=== PATIENT | female | born 1970 | race Caucasian/White ===

== ENCOUNTER → 2018-02-15 | Day surgery (SDC) | payer MEDICAID ==
[~2018-02-15] VITALS: Ht 170.2 cm; Wt 116.4 kg
[~2018-02-15] MED LIST: AMLO2.5T PO; CHLORHEXIDINE GLUCONATE 2 % 1 PACK (2 CLOTHS) TOPICAL PRN; DO NOT ADM ANY ANTICOAGULANT DRUGS PRN; INSULIN HUMAN REGULAR 1,000 UNITS/10 ML VIAL SQ PRN; LACTATED RINGER'S 1000 ML IV PRN; LEVA500T33 PO; LEVOFLOXACIN 500 MG PREMIX INJ 100 ML IV SCH; LIDOCAINE HCL 1% PF 5 ML SYRINGE OTHER ONE; LORA-474 PO; MACR100C2 PO; METOPROLOL TARTRATE 25 MG TAB PO PRN; MIDAZOLAM HCL 2 MG/2 ML VIAL ONE; ONDANSETRON HCL 4 MG/2 ML VIAL IV ONE; ONDANSETRON HCL 4 MG/2 ML VIAL IV PUSH PRN; PERC5TAB12 PO; POVIDONE IODINE 5% (ANTISEPSIS KIT) 4 APPLICATIONS EACH NARE PRN; PROPOFOL 200 MG/20 ML AMP IV ONE; SODIUM CHLORID 0.9% 500 ML IV PRN; ZANT150T2 PO; oxyCODONE/ACETAMINOPHEN 5 MG/325 MG TAB PO PRN
[2018-02-15 10:23] LABS: AUTOMATED NEUTROPHIL # 4.4 TH/MM3 (1.8-7.7); BASOPHIL # 0.1 TH/MM3 (0-0.2); BASOPHIL % 0.8 % (0.0-2.0); EOSINOPHIL # 0.1 TH/MM3 (0-0.4); EOSINOPHIL % 1.4 % (0.0-4.0); HEMATOCRIT 40.2 % (35.0-46.0); HEMOGLOBIN 13.7 GM/DL (11.6-15.3); LYMPH % 20.3 % (9.0-44.0); LYMPHOCYTE # 1.3 TH/MM3 (1.0-4.8); MEAN CELL VOLUME 91.5 FL (80.0-100.0); MEAN CORPUSCULAR HEMOGLOBIN 31.3 PG (27.0-34.0); MEAN CORPUSCULAR HGB CONC 34.2 % (32.0-36.0); MEAN PLATELET VOLUME 7.7 FL (7.0-11.0); MONO % 7.8 % (0.0-8.0); MONOCYTE # 0.5 TH/MM3 (0-0.9); NEUT % 69.7 % (16.0-70.0); PLATELET COUNT 281 TH/MM3 (150-450); RED CELL DISTRIBUTION WIDTH 15.1 % (11.6-17.2); WHITE BLOOD COUNT 6.3 TH/MM3 (4.0-11.0)
--- NOTE | 2018-02-15 15:28 | PD.OP ---
Operative Report Date of Surgery: Feb 15, 2018 Preoperative Diagnosis: (1) Ureteral calculus, right Postoperative Diagnosis: (1) Ureteral calculus, right Procedure: Cystoscopy, right retrograde pyelogram, right ureteroscopy with laser lithotripsy and right ureteral catheter placement. Anesthesia: General Surgeon: Cole Oscar Lead Electrical Controls Engineer(s): None Operation and Findings: Indication for procedures: Case of a pleasant 47-year-old female with an obstructing 6 mm right distal ureteral calculus who presents today for right ureteroscopy with laser lithotripsy. Operative procedure in detail: Patient was brought to the operating room suite placed supine on the cystoscopy table. She was then placed under general anesthesia. She was then repositioned in the dorsolithotomy position and prepped and draped in normal sterile fashion. After appropriate timeout was undertaken I proceeded with cystoscopic evaluation utilizing the rigid cystoscope with the 20 [place] sheath and the 30 lens. Both right and left ureteral orifices were in correct anatomic position. There was sluggish drainage of urine noted from both ureteral orifices. There were no bladder mucosal lesions, calculi or diverticula formation. I then advanced a sensor 0.035 wire up the patient's right ureter under fluoroscopic guidance all the way up into the right renal pelvis. With the wire in place the cystoscope was withdrawn and the wire secured to a sterile drape with hemostat. The self dilating ureteroscope was then advanced alongside this wire up to the point of the obstructing right distal ureteral calculus. A 200 m holmium laser fiber was then utilized and laser lithotripsy of the calculus was performed. Several of the larger stone fragments were then retrieved with a 2.4 [place] stone basket and sent off for chemical composition analysis. I then withdrew the ureteroscope and backloaded the cystoscope. A 6 [place] open-ended ureteral cath was then advanced over the previously placed wire up into the right renal pelvis and the wire withdrawn. A right retrograde pyelogram study was performed to outline the collecting system. The cystoscope was withdrawn and a 16 [place] 10 cc Boss catheter was placed. The open-ended catheter was then anchored to the Boss via a connector. Both catheters were then placed to gravity drainage. The patient tolerated the procedures without complications and was transferred to the PACU in satisfactory condition. Cole Oscar MD Feb 15, 2018 15:28
[2018-02-15 17:08] VITALS: BP 148/88; PULSE 79; RESP 16; TEMP 98; O2SAT 98
== END | disposition home or self-care (01) ==
LOC: HSDC 08:49
PROVIDERS: ATTEND Urology
DX: N20.1 Calculus of ureter (principal)
CPT/HCPCS: 00918; 52356; 74420; 82365; 82370; 85025; 88300; C1769; J1956; J2250; J2405; J3010; J7120

== ENCOUNTER 2018-03-28 17:23 | Emergency (ER) | payer MEDICAID ==
[~2018-03-28] VITALS: Ht 170.2 cm; Wt 116.0 kg
[~2018-03-28 17:23] MED LIST changes: -CHLORHEXIDINE GLUCONATE 2 % 1 PACK (2 CLOTHS) TOPICAL PRN; -DO NOT ADM ANY ANTICOAGULANT DRUGS PRN; -INSULIN HUMAN REGULAR 1,000 UNITS/10 ML VIAL SQ PRN; -LACTATED RINGER'S 1000 ML IV PRN; -LEVOFLOXACIN 500 MG PREMIX INJ 100 ML IV SCH; -LIDOCAINE HCL 1% PF 5 ML SYRINGE OTHER ONE; -MACR100C2 PO; -METOPROLOL TARTRATE 25 MG TAB PO PRN; -MIDAZOLAM HCL 2 MG/2 ML VIAL ONE; -ONDANSETRON HCL 4 MG/2 ML VIAL IV ONE; -ONDANSETRON HCL 4 MG/2 ML VIAL IV PUSH PRN; -POVIDONE IODINE 5% (ANTISEPSIS KIT) 4 APPLICATIONS EACH NARE PRN; -PROPOFOL 200 MG/20 ML AMP IV ONE; -SODIUM CHLORID 0.9% 500 ML IV PRN; -oxyCODONE/ACETAMINOPHEN 5 MG/325 MG TAB PO PRN
[2018-03-28 17:30] VITALS: BP 138/97; PULSE 75; RESP 22; TEMP 97.4; O2SAT 100
[2018-03-28] MEDS ORDERED: LORazepam 2 MG/ML VIAL IV PUSH ONE (17:45)
--- NOTE | 2018-03-28 17:47 | PD ---
HPI . Dizziness Chief Complaint: Dizziness Time Seen by Provider: 17:34 Travel History International Travel<30 days: No Contact w/Intl Traveler<30days: No Traveled to known affect area: No History of Present Illness HPI This patient presents with chief complaint of dizziness. She describes vertigo. It is exacerbated by turning her head and by standing. Her symptoms started yesterday morning and have waxed and waned since that time. Symptoms are mild. She presented to an urgent care facility earlier today and was instructed to come to the emergency department for evaluation of possible stroke or heart attack. She has not had any chest pain or shortness of breath. She does not have any focal neurological complaints. She denies any previous history of vertigo. She does have a past medical history of kidney stones and hypertension. She states that she took the Cipro and a Zantac prior to presentation hoping that it would help. She states that she had no idea what she might be treating but felt that they would not hurt. She reports no relief of her symptoms with these medications. PFSH Past Medical History Cancer: No Cardiovascular Problems: No Diabetes: No Endocrine: No Genitourinary: No Hepatitis: No Hiatal Hernia: No Immune Disorder: No Musculoskeletal: Yes (arthritis in left knee) Neurologic: No Psychiatric: No Reproductive: No Respiratory: Yes (previous asthma ) Thyroid Disease: No Past Surgical History Abdominal Surgery: Yes (galllbladder) Eye Surgery: No Genitourinary Surgery: No Gynecologic Surgery: No Oral Surgery: Yes (oral surgery) Social History Tobacco Use: No Substance Use: No Allergies-Medications (Allergen,Severity, Reaction): Coded Allergies: Sulfa (Sulfonamide Antibiotics) (Unverified Allergy, Severe, Cramping, ) amoxicillin (Unverified Allergy, Severe, rash, redness, itching, 03/28/18) Reported Meds & Prescriptions Reported Meds & Active Scripts Active Levaquin (Levofloxacin) 500 Mg Tablet 500 Mg PO DAILY First dose to be taken on February 16, 2018 Percocet (Oxycodone-Acetaminophen) 5-325 mg Tab 1-2 Tab PO Q6H PRN Reported Ativan (Lorazepam) 1 Mg Tab 1 Mg PO DAILY PRN Amlodipine (Amlodipine Besylate) 2.5 Mg Tab 5 Mg PO BID Zantac (Ranitidine HCl) 150 Mg Tab 150 Mg PO BID Review of Systems Except as stated in HPI: all other systems reviewed are Neg Physical Exam Narrative GENERAL: Awake and alert and fully oriented. SKIN: warm/dry. Normal color and turgor. HEAD: Normocephalic. Atraumatic. EYES: Pupils equal and round. No scleral icterus. No injection or drainage. ENT: No nasal bleeding or discharge. Mucous membranes pink and moist. NECK: Trachea midline. Full range of motion without pain.. CARDIOVASCULAR: Regular rate and rhythm. Heart sounds are normal. RESPIRATORY: No accessory muscle use. Clear to auscultation. Breath sounds equal bilaterally. MUSCULOSKELETAL: No obvious deformities. NEUROLOGICAL: Awake and alert. No obvious cranial nerve deficits. Motor grossly within normal limits. Wzedur-iyor-iuntui exam is intact. Normal speech. PSYCHIATRIC: Appropriate mood and affect; insight and judgment normal. Data Data Last Documented VS Vital Signs Date Time Temp Pulse Resp B/P (MAP) Pulse Ox O2 Delivery O2 Flow Rate FiO2 03/28/18 18:10 Room Air 03/28/18 18:00 70 15 121/69 (86) 100 03/28/18 17:30 97.4 Orders Orders Lorazepam Inj (Ativan Inj) (03/28/18 17:45) ^ Saline Lock (03/28/18 17:42) Ct Brain W/O Iv Contrast(Rout) (03/28/18 17:42) Electrocardiogram (03/28/18 ) Complete Blood Count With Diff (03/28/18 17:42) Basic Metabolic Panel (Bmp) (03/28/18 17:42) Troponin I (03/28/18 17:42) Meclizine (Antivert) (03/28/18 18:30) Labs Laboratory Tests Test 03/28/18 18:00 White Blood Count 8.3 TH/MM3 Red Blood Count 4.77 MIL/MM3 Hemoglobin 15.4 GM/DL Hematocrit 44.4 % Mean Corpuscular Volume 93.0 FL Mean Corpuscular Hemoglobin 32.2 PG Mean Corpuscular Hemoglobin Concent 34.6 % Red Cell Distribution Width 15.3 % Platelet Count 284 TH/MM3 Mean Platelet Volume 8.0 FL Neutrophils (%) (Auto) 82.4 % Lymphocytes (%) (Auto) 12.4 % Monocytes (%) (Auto) 4.2 % Eosinophils (%) (Auto) 0.4 % Basophils (%) (Auto) 0.6 % Neutrophils # (Auto) 6.9 TH/MM3 Lymphocytes # (Auto) 1.0 TH/MM3 Monocytes # (Auto) 0.4 TH/MM3 Eosinophils # (Auto) 0.0 TH/MM3 Basophils # (Auto) 0.1 TH/MM3 CBC Comment DIFF FINAL Differential Comment Blood Urea Nitrogen 13 MG/DL Creatinine 0.92 MG/DL Random Glucose 107 MG/DL Calcium Level 9.7 MG/DL Sodium Level 139 MEQ/L Potassium Level 4.2 MEQ/L Chloride Level 107 MEQ/L Carbon Dioxide Level 22.7 MEQ/L Anion Gap 9 MEQ/L Estimat Glomerular Filtration Rate 65 ML/MIN Troponin I LESS THAN 0.02 NG/ML MDM Medical Decision Making Medical Screen Exam Complete: Yes Emergency Medical Condition: Yes Interpretation(s) EKG shows a sinus rhythm with no acute ischemic changes Differential Diagnosis Differential diagnosis of dizziness includes but is not limited to vertigo, dehydration, acute blood loss, sepsis, ACS Narrative Course This patient presents with a chief complaint of dizziness. Her symptoms sound like vertigo. She was instructed to come here for evaluation of possible stroke or heart attack. Her vertigo will be treated with Ativan. She is pretty anxious so the Ativan should treat both the anxiety and the vertigo. In the meantime, I have ordered a CT of her head and an EKG in addition to basic labs. I anticipate discharge. CT: Mild diffuse cerebral atrophy. The ventricles are normal for degree of atrophy. No evidence of midline shift, mass lesion, hemorrhage or acute infarction. No extra-axial fluid collections are seen. CBC & BMP Diagram 03/28/18 18:00 Calcium Level 9.7 trop < 0.02 This patient is stable for discharge to home. Diagnosis Primary Impression: Vertigo Patient Instructions: Benign Paroxysmal Positional Vertigo (DC), General Instructions Med/Other Pt SpecificInfo: Prescription(s) given Disposition: DISCHARGE HOME Condition: Stable June Wagner MD Mar 28, 2018 17:47
[2018-03-28 18:00] VITALS: BP 121/69; PULSE 70; RESP 15; O2SAT 100
[2018-03-28 18:14] LABS: AUTOMATED NEUTROPHIL # 6.9 TH/MM3 (1.8-7.7); BASOPHIL # 0.1 TH/MM3 (0-0.2); BASOPHIL % 0.6 % (0.0-2.0); EOSINOPHIL % 0.4 % (0.0-4.0); HEMATOCRIT 44.4 % (35.0-46.0); HEMOGLOBIN 15.4 GM/DL (11.6-15.3); LYMPH % 12.4 % (9.0-44.0); MEAN CORPUSCULAR HEMOGLOBIN 32.2 PG (27.0-34.0); MEAN CORPUSCULAR HGB CONC 34.6 % (32.0-36.0); MONO % 4.2 % (0.0-8.0); MONOCYTE # 0.4 TH/MM3 (0-0.9); NEUT % 82.4 % (16.0-70.0); PLATELET COUNT 284 TH/MM3 (150-450); RED BLOOD COUNT 4.77 MIL/MM3 (4.00-5.30); RED CELL DISTRIBUTION WIDTH 15.3 % (11.6-17.2); WHITE BLOOD COUNT 8.3 TH/MM3 (4.0-11.0)
--- NOTE | 2018-03-28 18:24 | RADRPT ---
EXAM DATE/TIME: 03/28/2018 18:11 [facility] COMPARISON: No previous studies available for comparison. INDICATIONS : Dizziness. RADIATION DOSE: 56.35 CTDIvol (mGy) MEDICAL HISTORY : Hypertension. SURGICAL HISTORY : None. ENCOUNTER: Initial ACUITY: 1 day PAIN SCALE: 0/10 LOCATION: cranial TECHNIQUE: Multiple contiguous axial images were obtained of the head. Using automated exposure control and adj ustment of the mA and/or kV according to patient size, radiation dose was kept as low as reasonably a chievable to obtain optimal diagnostic quality images. DICOM format image data is available electro nically for review and comparison. FINDINGS: CEREBRUM: Mild diffuse cerebral atrophy. The ventricles are normal for degree of atrophy. No evidence of midli ne shift, mass lesion, hemorrhage or acute infarction. No extra-axial fluid collections are seen. POSTERIOR FOSSA: The cerebellum and brainstem are intact. The 4th ventricle is midline. The cerebellopontine angle i s unremarkable. EXTRACRANIAL: The visualized portion of the orbits is intact. SKULL: The calvaria is intact. No evidence of skull fracture. CONCLUSION: 1. Mild diffuse or bladder a few slightly out of proportion to stated age. 2. No acute intracranial abnormality. Kota Bae MD on March 28, 2018 at 18:20 Board Certified Radiologist. This report was verified electronically.
[2018-03-28] MEDS ORDERED: MECLIZINE HCL 25 MG TAB PO ONE (18:30)
[2018-03-28 18:35] LABS: BICARBONATE 22.7 MEQ/L (21.0-32.0); BLOOD UREA NITROGEN 13 MG/DL (7-18); CALCIUM 9.7 MG/DL (8.5-10.1); CHLORIDE 107 MEQ/L (98-107); CREATININE 0.92 MG/DL (0.50-1.00); GLOMERULAR FILTRATION RATE 65 ML/MIN (>89); GLUCOSE,RANDOM 107 MG/DL (74-106); SODIUM (NA) 139 MEQ/L (136-145)
[2018-03-28 18:37] LABS: TROPONIN I LESS THAN 0.02 NG/ML (0.02-0.05)
[2018-03-28] MEDS ORDERED: MECL-62 PO (19:07)
[2018-03-28 19:20] VITALS: BP 148/81
--- NOTE | 2018-03-29 21:14 | EKG ---
Date Performed: 03/28/2018 Time Performed: 17:53:42 PTAGE: 47 years EKG: Sinus rhythm NORMAL ECG NO PREVIOUS TRACING DOCTOR: Jovany Guzman Interpretating Date/Time 03/29/2018 21:12:58
== END 2018-03-28 19:20 | disposition home or self-care (01) ==
LOC: NEPE 17:23
DX: R42 Dizziness and giddiness (principal); M17.12 Unilateral primary osteoarthritis, left knee; J45.909 Unspecified asthma, uncomplicated; I10 Essential (primary) hypertension; Z87.442 Personal history of urinary calculi; Z79.899 Other long term (current) drug therapy; Z88.2 Allergy status to sulfonamides; Z88.0 Allergy status to penicillin
CPT/HCPCS: 70450; 80048; 84484; 85025; 93005; 96374; 99284; J2060